=== PATIENT | female | born 1990 | race Caucasian/White ===

== ENCOUNTER 2022-04-18 13:52 | Emergency (ER) | payer OTHER ==
[2022-04-18] MEDS ORDERED: Boostrix 0.5 ML (Tdap) VIAL (>/=7 yrs of age) ONE (14:43)
[2022-04-18] MEDS ORDERED: Ibuprofen 200 MG TAB ONE (14:43)
== END 2022-04-18 15:18 | disposition home or self-care (01) ==
LOC: NAV ERS 13:52
DX: S43.401A Unspecified sprain of right shoulder joint, initial encounter (principal); S70.311A Abrasion, right thigh, initial encounter; F17.210 Nicotine dependence, cigarettes, uncomplicated; W19.XXXA Unspecified fall, initial encounter
CPT/HCPCS: 90471; 90715

== ENCOUNTER 2023-05-06 12:12 | Emergency (ER) | payer SELFPAY ==
[2023-05-06] MEDS ORDERED: methylPREDNISolone Sod Succ/PF 125 MG/2 ML VIAL ONE (12:19)
[2023-05-06] MEDS ORDERED: Sodium Chloride 0.9% 1,000 ML ONE (13:12)
== END 2023-05-06 13:58 | disposition home or self-care (01) ==
LOC: NAV ERS 12:12
DX: L29.9 Pruritus, unspecified (principal); R21 Rash and other nonspecific skin eruption; R06.02 Shortness of breath; T36.0X5A Adverse effect of penicillins, initial encounter; F17.210 Nicotine dependence, cigarettes, uncomplicated
CPT/HCPCS: 96374; J2930; J7050

== ENCOUNTER 2023-12-16 15:54 | Emergency (ER) | payer SELFPAY ==
[2023-12-16] MEDS ORDERED: Ketorolac Tromethamine 30 MG (1 mL) VIAL ONE (16:35)
== END 2023-12-16 16:53 | disposition home or self-care (01) ==
LOC: NAV ERS 15:54
DX: S16.1XXA Strain of muscle, fascia and tendon at neck level, initial encounter (principal); F17.210 Nicotine dependence, cigarettes, uncomplicated; X58.XXXA Exposure to other specified factors, initial encounter
CPT/HCPCS: 96372; 99283; J1885

== ENCOUNTER 2024-05-19 11:36 | Emergency (ER) | payer SELFPAY ==
[~2024-05-19 11:36] MED LIST: Iopamidol 370 76% 100 ML VIAL ONE
[2024-05-19 11:58] LABS: Bilirubin Negative (Negative); Blood, Urine Moderate (Negative); Clarity Clear (Clear); Glucose, Urine (Dipstick) Negative (Negative); Ketone, Urine Negative (Negative); Leukocyte Negative (Negative); Nitrite Negative (Negative); Protein, Urine (Dipstick) Negative (Neg-Trace); Urobilinogen 0.2 mg/dL (Less than 2)
[2024-05-19 12:04] LABS: Bacteria/HPF Rare-Few HPF (None Seen); CAUTI Indications for Culture Dysuria,urgency,freq; Pregnancy Test - Urine (BHCG) Negative (Negative); Pregu Control Background? CLEAR/WHITE (CLR/WHITE); Pregu Control Bar Appear? YES (CONTROL BAR); RBC/HPF 0-3 HPF (0-3); Specific Gravity 1.002 (1.002-1.036); Specific Gravity, Urine 1.002 (1.002-1.036); Urine Culture Reflex No No; WBC/HPF None Seen HPF (0-3)
[2024-05-19] MEDS ORDERED: Ketorolac Tromethamine 30 MG (1 mL) VIAL ONE (12:43)
[2024-05-19] MEDS ORDERED: Sodium Chloride 0.9% 1,000 ML ONE (12:43)
[2024-05-19 13:01] LABS: #Basophils 0.2 thou/uL (0.0-0.2); #Eosinophils 0.4 thou/uL (0.0-0.7); #Lymphocytes 3.4 thou/uL (1.20-3.40); #Monocytes 0.6 thou/uL (0.11-0.59); #Neutrophils 5.3 thou/uL (1.40-6.50); %Basophils 1.6 % (0.0-1.0); %Eosinophils 4.3 % (0.0-10.0); %Lymphocytes 34.9 % (21.0-51.0); %Monocytes 5.7 % (0.0-10.0); %Neutrophils 53.5 % (42.0-75.0); Hematocrit 50.2 % (36.0-47.0); Hemoglobin 16.7 g/dL (12.0-16.0); Mean Corpuscular HGB CONC 33.3 g/dL (32.0-36.0); Mean Corpuscular Hemoglobin 31.2 pg (27.0-31.0); Mean Corpuscular Volume 93.8 fl (78.0-98.0); Platelet Count 349 10x3/uL (130-400); RBC Distribution Width 11.5 % (11.5-14.5); Red Blood Cell (RBC) Count 5.35 mill/uL (4.20-5.40); White Blood Cell (WBC) Count 9.8 10x3/uL (4.8-10.8)
[2024-05-19 13:16] LABS: ALT (SGPT) 21 U/L (8-55); AST (SGOT) 16 U/L (5-34); Alkaline Phosphatase 67 U/L (40-110); Anion Gap 12 mmol/L (10-20); BUN (Urea Nitrogen) 10 mg/dL (7.0-18.7); Bilirubin, Total 0.3 mg/dL (0.2-1.2); Calc. Creatinine Clearance 0 mL/min (70-130); Calcium 9.8 mg/dL (7.8-10.44); Carbon Dioxide 22 mmol/L (22-29); Chloride 107 mmol/L (98-107); Estimated GFR 90; Globulin 3.1 g/dL (2.4-3.5); Glucose 103 mg/dL (70-105); Lipase 24 U/L (8-78); Potassium 4.2 mmol/L (3.5-5.1); Protein, Total 7.1 g/dL (6.0-8.3); Sodium 137 mmol/L (136-145)
[2024-05-19] MEDS ORDERED: Sulfameth/Trimethoprim DS 800-160mg TAB ONE (14:19)
== END 2024-05-19 14:55 | disposition home or self-care (01) ==
LOC: NAV ERS 11:36
DX: N28.89 Other specified disorders of kidney and ureter (principal); R10.30 Lower abdominal pain, unspecified; F17.210 Nicotine dependence, cigarettes, uncomplicated
CPT/HCPCS: 74177; 80053; 81001; 81025; 83690; 85025; 87086; 96374; J1885; J7030; Q9967